=== PATIENT | male | born 1980 | race Caucasian/White ===

== ENCOUNTER 2016-09-27 19:44 | Observation (INO) | payer OTHER ==
--- NOTE | ~2016-09-27 | HP ---
History And Physical [address] [place]. [address] NAME: MAHSA CASE : [birth year] STATUS : ADM Yin PAT#: [id number] AGE: 36 ADM/REG DATE : 09/27/16 MR#: [id number] REPORT SERV DATE: 09/28/16 DICTATED BY: BRANDON [place] DATE: 09/27/16 REPORT STATUS : Draft TRANSCRIBED BY: MODL DATE: 09/27/16 DATE OF ADMISSION: 09/27/2016 CHIEF COMPLAINT: A 36-year-old male, presenting with bloody vomit. HISTORY OF PRESENT ILLNESS: The patient's history was obtained through careful interview with the patient, coupled with review of [facility] medical records. For about two weeks, the patient has had a new sinus infection. He has been using over-the- counter medications to relieve it and has been gradually improving. With this context in mind, the patient on 09/25/2016 began to develop nausea and then vomited up a large amount of blood. On 09/25/2016, he vomited blood one time yesterday. On 09/26/2016, he vomited up blood two times and on the day of admission, 09/27/2016, he vomited up blood three times. It always dark red with clots and never comes up black. No bright red blood per rectum. No melena. He does describe either right upper quadrant abdominal pain versus right lower lung chest discomfort at the peripheral aspect of his body, throbbing quality, exacerbated by activity, 8/10 severity. No nonsteroidal anti-inflammatory drug use. No lightheadedness. No diarrhea. No shortness of breath. No other abdominal pain. REVIEW OF SYSTEMS: Otherwise, a 14-point review of systems was obtained and was negative. PAST MEDICAL HISTORY: 1. Peptic ulcer disease in 2007. 2. Posttraumatic stress disorder with depression and anxiety. 3. Lower back pain. 4. Neuropathy. 5. Elevated cholesterol. 6. Hypertension. 7. Spina bifida occulta of L5. 8. Obstructive sleep apnea with occasional CPAP. PAST SURGICAL HISTORY: Denies any. ALLERGIES: NO KNOWN DRUG ALLERGIES. SOCIAL HISTORY: Never been a smoker, occasionally drinks mixed alcohol drinks. Lives alone, works at [employer], but also is a of the [employer], spent time in the [place], stationed at the [employer]. He lives in [place], [place]. He has no History And Physical [address] [address] NAME: MAHAS CASE : [birth year] STATUS : ADM Yin PAT#: [id number] AGE: 36 ADM/REG DATE : 09/27/16 MR#: [id number] REPORT SERV DATE: 09/28/16 DICTATED BY: BRANDON LAKE DATE: 09/27/16 REPORT STATUS : Draft TRANSCRIBED BY: PHILIP DATE: 09/27/16 children. FAMILY HISTORY: Mother and father, both healthy, cannot identify any particular patterns of familial disease. CURRENT MEDICATIONS: Include Flonase, Mucinex. PHYSICAL EXAMINATION: VITAL SIGNS: Temperature 98.2, pulse 72, blood pressure 135/92, respiratory rate is 16, and O2 saturation 98% on room air. GENERAL: A pleasant, cooperative, male, in no evidence of acute distress. HEENT: Pupils equal, round, and reactive to light. No conjunctival pallor. No scleral icterus. Nares are patent. Oropharynx is clear of obstruction. Moist mucous membranes. No intraoral lesions. NECK: Trachea midline. No thyromegaly. LYMPH: No cervical lymphadenopathy. No supraclavicular lymphadenopathy. RESPIRATORY: Clear to auscultation at bases. No wheezes, rales, or rhonchi. Normal respiratory effort. CARDIOVASCULAR: Regular rate and rhythm. No murmurs, rubs, or gallops. No extremity edema is appreciated. ABDOMEN: Soft, nontender, nondistended. Normal bowel sounds auscultated throughout. No hepatosplenomegaly. DERMATOLOGICAL: Warm and dry extremities. No pallor. No cyanosis. PSYCHIATRIC: Normal affect. Good mood. Alert and oriented x3. LABORATORY DATA: White blood cell count 11.7, hemoglobin 14, hematocrit 41, platelets 199. Sodium 141, potassium 3.7, chloride 107, bicarbonate 30, BUN 9, creatinine 1.12, glucose 90, lipase 218. Liver enzymes within normal limits. ASSESSMENT AND PLAN: Hematemesis. Place on IV proton pump inhibitor drip. Consult supervisory clerk, Dr. Bacilio Caldwell. GIOVANY/PHILIP Brandon Lake M.D. / [id number] CC: Gary Zuñiga MD
--- NOTE | ~2016-09-27 | CN ---
Consultation Report [facility] [address] [place]. [address] NAME: MAHSA SAENZ : [birth year] STATUS : ADM Yni PAT#: [id number] AGE: 36 ADM/REG DATE : 09/27/16 MR#: [id number] REPORT SERV DATE: 09/28/16 DICTATED BY: DELISA MCKEON DATE: 09/28/16 REPORT STATUS : Draft TRANSCRIBED BY: MODL DATE: 09/28/16 GI CONSULTATION DATE OF CONSULTATION: 09/28/2016 REASON FOR CONSULTATION: Evaluation and management of upper GI bleeding. HISTORY OF PRESENT ILLNESS: Mr. Saenz is a 36-year-old male patient, whom we received on GI unattached call for evaluation of upper GI bleeding. The patient states that he began to have nausea, vomiting, hematemesis on Tuesday09/24/2016. He has been suffering from an upper respiratory infection with a lot of mucus production. He states that on Tuesday he vomited bright red blood with clots one time, it happened twice on Tuesday, and then one time Tuesday, and then three times yesterday. He describes his bowel movements as normal. He does not have melena nor any bright red blood per rectum. He has right upper quadrant pain, which started after he began to vomit. He does have a history of peptic ulcer disease in 2007 stating that he had an upper endoscopy done at [place]. He denies any NSAID use. He does not take any regular routine medications. He has been taking Flonase and Mucinex for his upper respiratory complaints. He has not had any syncope, near syncope, dizziness, or lightheadedness. I have discussed with him and his mother, who is currently present at the bedside. We will plan for upper endoscopy today. Risks, benefits, alternatives, and complications were detailed for him to include, but not limited to risk of bleeding, perforation, infection, reaction to medication, as well as cardiac and pulmonary side effects. He is agreeable to proceed. PAST MEDICAL HISTORY: Positive for peptic ulcer disease in 2007, PTSD, depression, anxiety, neuropathy, elevated cholesterol, hypertension, obstructive sleep apnea, spina bifida, neuropathy. PAST SURGICAL HISTORY: He denies. ALLERGIES: HE HAS NONE. SOCIAL HISTORY: He denies tobacco. Social alcohol. No illicits. FAMILY HISTORY: Noncontributory from a gastrointestinal standpoint. HOME MEDICATIONS: Flonase and Mucinex. REVIEW OF SYSTEMS: A 10-point review of systems was obtained with pertinent positives being addressed in the history of present illness. PHYSICAL EXAMINATION: VITAL SIGNS: Temperature is 98.1, pulse 46, respirations 18, blood pressure 104/59. Consultation Report [address] [place]. [address] NAME: MAHSA SAENZ : 78 STATUS : ADM Yin PAT#: [id number] AGE: 36 ADM/REG DATE : 09/27/16 MR#: [id number] REPORT SERV DATE: 09/28/16 DICTATED BY: DELISA MCKEON N DATE: 09/28/16 REPORT STATUS : Draft TRANSCRIBED BY: PHILIP DATE: 09/28/16 NEURO: Reveals an alert, male, resting in bed with no focal deficits. GENERAL: He is cooperative. He is in no acute distress. He is awake, alert, and oriented x3. HEAD, EARS, EYES, NOSE, AND THROAT: Anicteric. Pupils equal, round, reactive to light and accommodation. Normocephalic and atraumatic. NECK: Supple. No JVD. No palpable nodes. LUNGS: Clear anteriorly with normal respiratory effort exhibited. Equal expansion. CARDIOVASCULAR SYSTEM: Regular rate and rhythm. Bradycardic. ABDOMEN: Soft with tenderness to palpation to the right upper quadrant. Active bowel sounds. No organomegaly appreciated. EXTREMITIES: No edema. Normal distal pulses. SKIN: Warm, dry, and intact. PERTINENT LABORATORY DATA: Sodium 142, potassium 3.6, BUN is 10, creatinine 1.11. White count 9.3, hemoglobin 13.1, hematocrit 38.6, platelet count is 191 with an INR of 1.2. No abdominal imaging obtained on admission. ASSESSMENT: 1. Upper GI bleed with hematemesis since 09/24/2016. Differential diagnosis is peptic ulcer disease, esophagitis, Elena-Toribio tear, arteriovenous malformations. 2. Right upper quadrant abdominal pain. 3. History of peptic ulcer disease in 2007. PLAN: 1. Continue his proton pump inhibitor drip. 2. The patient will undergo EGD today by Dr. Montes. I did discuss the risks, benefits, alternatives, and complications with the patient and his mother, who is present at the bedside. Other recommendations to follow EGD. DG/PHILIP CONSTANTINE Mena / [id number] CC: Gary Zuñiga MD
--- NOTE | ~2016-09-27 | EGD ---
EGD REPORT [facility] [address] [address] NAME: MAHSA SAENZ : 78 STATUS : ADM Yin PAT#: [id number] AGE: 36 ADM/REG DATE : 09/27/16 MR#: [id number] REPORT SERV DATE: 09/28/16 DICTATED BY: TY JOHNS DATE: 09/28/16 REPORT STATUS : Draft TRANSCRIBED BY: [facility] DATE: 09/28/16 Endoscopy Center Patient Name: Mahsa Saenz Date of : 1980 Attending MD: TY JOHNS MD Procedure Date No Time: 09/28/2016 Procedure: Upper GI endoscopy Indications: Hematemesis Medicines: Monitored Anesthesia Care Complications: No immediate complications. Estimated blood loss: Minimal. Procedure: After obtaining informed consent, the endoscope was passed under direct vision. Throughout the procedure, the patient's blood pressure, pulse, and oxygen saturations were monitored continuously. The GIF [id number] was introduced through the mouth, and advanced to the second part of duodenum. The upper GI endoscopy was accomplished without difficulty. The patient tolerated the procedure well. Findings: A small non-bleeding Elena-Toribio tear with stigmata of recent bleeding was found. A single medium-sized angioectasia with no bleeding was found in the gastric fundus. Fulguration to ablate the lesion to prevent bleeding by argon plasma at 0.8 liters/minute and 30 jones was successful. Estimated blood loss was minimal. Localized granular mucosa was found on the posterior wall of the gastric body. Biopsies were taken with a cold forceps for histology. Estimated blood loss was minimal. A single small nodule was found in the duodenal bulb. Biopsies were taken with a cold forceps for histology. Estimated blood loss was minimal. The exam was otherwise without abnormality. Impression: - Elena-Toribio tear. - A single non-bleeding angioectasia in the stomach. Treated by fulguration. - Granular gastric mucosa. Biopsied. - Nodule found in the duodenum. Biopsied. - The examination was otherwise normal. Recommendation: - Return patient to [facility] for [facility] care. - Full liquid diet today. - Await pathology results. EGD REPORT [address] [address] NAME: MAHSA SAENZ : [birth year] STATUS : ADM Yin PAT#: [id number] AGE: 36 ADM/REG DATE : 09/27/16 MR#: [id number] REPORT SERV DATE: 09/28/16 DICTATED BY: TY JOHNS DATE: 09/28/16 REPORT STATUS : Draft TRANSCRIBED BY: [employer] DATE: 09/28/16 - Use Protonix (pantoprazole) 40 mg PO BID for 4 weeks. Procedure Code(s): --- Professional --- 21435, 59, Esophagogastroduodenoscopy, flexible, transoral; with control of bleeding, any method 99058, Esophagogastroduodenoscopy, flexible, transoral; with biopsy, single or multiple Diagnosis Code(s): --- Professional --- K22.6, Gastro-esophageal laceration-hemorrhage syndrome K31.819, Angiodysplasia of stomach and duodenum without bleeding K31.9, Disease of stomach and duodenum, unspecified K92.0, Hematemesis CPT copyright 2013 [employer]. All rights reserved. The codes documented in this report are preliminary and upon employee relations director review may be revised to meet current compliance requirements. Ty Johns MD TY JOHNS MD 09/28/2016 10:29 AM This report has been signed electronically. Number of Addenda: 0 Note Initiated On: 09/28/2016 10:01 AM Scope Withdrawal Time 0 hours 0 minutes 0 seconds [address] [id number]
--- NOTE | ~2016-09-27 | DS ---
Discharge Summary [address] [place]. [address] NAME: MAHSA CASE : 78 STATUS : DIS Yin PAT#: [id number] AGE: 36 ADM/REG DATE : 09/27/16 MR#: [id number] REPORT SERV DATE: 09/29/16 DICTATED BY: MAHSA MOE DATE: 09/28/16 REPORT STATUS : Draft TRANSCRIBED BY: MODL DATE: 09/28/16 ADMISSION DATE: 09/27/2016 DISCHARGE DATE: 09/28/2016 OBSERVATION DISCHARGE OBSERVATION PERIOD: 09/27/2016 to 09/28/2016. DIAGNOSES: 1. Upper gastrointestinal bleeding. 2. Elena-Toribio tear. 3. Single nonbleeding angioectasia in the stomach, treated by fulguration. 4. Granular gastric mucosa, biopsied. 5. Nodule found in duodenum, biopsied. 6. Posttraumatic stress disorder. 7. Anxiety and depression. 8. Chronic pain. 9. Hyperlipidemia. 10.Hypertension. 11.Sleep apnea. OPERATIONS AND PROCEDURES: Upper endoscopy, 09/28/2016, Dr. Montes. PRESENT ILLNESS: This is a 36-year-old white male, who was triaged in the emergency room on 09/27/2016 at 1652 hours with a chief complaint of "throwing up blood." Admission vital signs, blood pressure 135/92, temperature 98.2, pulse 72, respirations 16, and O2 saturation 98%. After evaluation in the emergency room, he was referred to the Hospitalist Service for admission. He was seen by Dr. Harshil Mcmahon and admitted as described on admission history and physical examination. ADDITIONAL HISTORY: Per Dr. Mcmahon. PHYSICAL EXAMINATION: Per Dr. Mcmahon. ADMISSION LABORATORY: Per Dr. Mcmahon. HOSPITAL COURSE: He was admitted by Dr. Mcmahon with upper gastrointestinal bleeding. He was placed on [address]. He was placed on IV Protonix drip. GI consultation was obtained. He was seen on the morning of 09/28/2016 by Vicente Olivas. He was scheduled for endoscopy. This was performed by Dr. Montes today with findings as noted above. Dr. Montes's recommendation was full liquid diet, Protonix 40 mg twice daily for four weeks Discharge Summary [address] [place]. [address] NAME: MAHSA CASE MACIE : 78 STATUS : DIS Yin PAT#: [id number] AGE: 36 ADM/REG DATE : 09/27/16 MR#: [id number] REPORT SERV DATE: 09/29/16 DICTATED BY: MAHSA MOE DATE: 09/28/16 REPORT STATUS : Draft TRANSCRIBED BY: PHILIP DATE: 09/28/16 and outpatient followup regarding biopsy results. He was seen by the undersigned at 1507 hours on 09/28/2016. He wanted to go home. He was tolerating full liquids without nausea, vomiting, or pain. He was not dizzy. Blood pressure sitting 120/73, blood pressure standing 123/79. He was oriented and ambulatory and had no significant findings on exam. His hemoglobin had been 13.1 at 0554 hours and 13.6 at 0901 hours. At this point in his hospitalization, it was felt he had achieved a level of improvement and stability, where he could be safely discharged to home with outpatient followup with GI if needed and at the [facility] which is where he receives his care. He was asked to follow a liquid diet today and then advance his diet tomorrow as tolerated. It was felt he could return to work tomorrow unless he had recurrent GI symptoms. He was asked not to use any nonsteroidal anti-inflammatory drugs. He will continue his home Mucinex day and Mucinex p.m. as well as Flonase. He was given a prescription for Protonix to use 40 mg twice daily for the next four weeks. DD/PHILIP Mahsa Moe M.D. / [id number] CC: Mahsa Moe M.D. [facility]
[2016-09-27 17:17] LABS: BASOPHILS 0.2 %; BASOPHILS ABSOLUTE 0.02 10/3/uL (0.0-0.16); EOSINOPHILS 1.8 %; EOSINOPHILS ABSOLUTE 0.21 10/3/uL (0.0-0.53); ER CBC TAT 0 Hrs 07 Mins; HEMATOCRIT 41.4 % (40.0-51.0); HEMOGLOBIN 14.5 g/dL (13.6-17.8); IMMATURE GRANULOCYTES 0.3 %; IMMATURE GRANULOCYTES ABSOLUTE 0.03 10/3/uL (0.0-0.11); LYMPHOCYTES 13.9 %; LYMPHOCYTES ABSOLUTE 1.62 10/3/uL (0.67-4.30); MEAN CORPUSCULAR HEMOGLOB 29.9 pg (26.0-34.0); MEAN CORPUSCULAR VOLUME 85.4 fL (80-100); MEAN PLATELET VOLUME 9.1 fL (9.2-13.0); MONOCYTES 5.8 %; MONOCYTES ABSOLUTE 0.68 10/3/uL (0.21-1.20); NEUTROPHILS ABSOLUTE 9.13 10/3/uL (2.02-8.40); PLATELET COUNT 199 10/3/uL (150-400); RBC DISTRIBUTION WIDTH 13.4 % (12.0-16.0); RED CELL COUNT 4.85 10/6/uL (4.7-6.1); WHITE BLOOD CELLS 11.7 10/3/uL (4.5-10.5)
[2016-09-27 17:18] LABS: MANUAL DIFF NO %
[2016-09-27 17:30] LABS: ALKALINE PHOSPHATASE 85 U/L (45-117); BUN (BLOOD UREA NITROGEN) 9 MG/DL (6-23); CALCIUM, SERUM 9.3 MG/DL (8.5-10.4); CHLORIDE, SERUM 107 MMOL/L (96-112); CO2 (CARBON DIOXIDE) 30 MMOL/L (24-34); CREATININE 1.12 MG/DL (0.70-1.30); GFR AFRICAN AMERICAN 97 ML/MIN (>=60); GFR NON AFRICAN AMERICAN 83 ML/MIN (>=60); GLOBULIN 3.9 G/DL (2.5-4.1); GLUCOSE, SERUM 90 MG/DL (60-99); POTASSIUM, SERUM 3.7 MMOL/L (3.5-5.3); SGOT(AST) 13 U/L (5-40); SGPT(ALT) 19 U/L (5-65); SODIUM, SERUM 141 MMOL/L (135-148); TOTAL PROTEIN 7.9 G/DL (6.0-8.5)
[2016-09-27] MEDS ORDERED: FLONASE NAS (19:46)
[2016-09-27] MEDS ORDERED: [UNRECOGNIZED DRUG - OTHER] PO (19:49)
[2016-09-27] MEDS ORDERED: [UNRECOGNIZED DRUG - OTHER] PO (19:50)
[2016-09-28 06:36] LABS: BASOPHILS 0.2 %; BASOPHILS ABSOLUTE 0.02 10/3/uL (0.0-0.16); EOSINOPHILS 2.7 %; EOSINOPHILS ABSOLUTE 0.25 10/3/uL (0.0-0.53); HEMATOCRIT 38.6 % (40.0-51.0); HEMOGLOBIN 13.1 g/dL (13.6-17.8); IMMATURE GRANULOCYTES 0.3 %; IMMATURE GRANULOCYTES ABSOLUTE 0.03 10/3/uL (0.0-0.11); LYMPHOCYTES 21.1 %; LYMPHOCYTES ABSOLUTE 1.96 10/3/uL (0.67-4.30); MEAN CORPUS HGB CONC 33.9 g/dL (32.0-36.0); MEAN CORPUSCULAR HEMOGLOB 29.2 pg (26.0-34.0); MEAN CORPUSCULAR VOLUME 86.2 fL (80-100); MEAN PLATELET VOLUME 9.3 fL (9.2-13.0); MONOCYTES 8.1 %; MONOCYTES ABSOLUTE 0.75 10/3/uL (0.21-1.20); NEUTROPHILS 67.6 %; NEUTROPHILS ABSOLUTE 6.27 10/3/uL (2.02-8.40); PLATELET COUNT 191 10/3/uL (150-400); RBC DISTRIBUTION WIDTH 13.4 % (12.0-16.0); RED CELL COUNT 4.48 10/6/uL (4.7-6.1); WHITE BLOOD CELLS 9.3 10/3/uL (4.5-10.5)
[2016-09-28 06:38] LABS: MANUAL DIFF NO %
[2016-09-28 06:46] LABS: INTERNATIONAL NORMAL RATI 1.2 UNITS (-); PARTIAL THROMBO TIME 34.7 SEC (22.5-37.2); PROTIME (NOT ORD) 14.6 SEC (12.0-14.5)
[2016-09-28 06:59] LABS: A/G RATIO 0.9 (0.7-1.9); ALBUMIN 3.2 G/DL (3.5-5.0); ALKALINE PHOSPHATASE 67 U/L (45-117); BUN (BLOOD UREA NITROGEN) 10 MG/DL (6-23); CALCIUM, SERUM 8.5 MG/DL (8.5-10.4); CHLORIDE, SERUM 109 MMOL/L (96-112); CO2 (CARBON DIOXIDE) 26 MMOL/L (24-34); CREATININE 1.11 MG/DL (0.70-1.30); GFR AFRICAN AMERICAN 98 ML/MIN (>=60); GFR NON AFRICAN AMERICAN 84 ML/MIN (>=60); GLOBULIN 3.4 G/DL (2.5-4.1); GLUCOSE, SERUM 75 MG/DL (60-99); POTASSIUM, SERUM 3.6 MMOL/L (3.5-5.3); SGOT(AST) 13 U/L (5-40); SGPT(ALT) 16 U/L (5-65); SODIUM, SERUM 142 MMOL/L (135-148); TOTAL BILIRUBIN 1.1 MG/DL (0-1.2); TOTAL PROTEIN 6.6 G/DL (6.0-8.5)
[2016-09-28 09:55] LABS: HEMATOCRIT 40.2 % (40.0-51.0); HEMOGLOBIN 13.6 g/dL (13.6-17.8)
[2016-09-28] MEDS ORDERED: PROTONIX PO (15:46)
== END 2016-09-28 16:45 | disposition home or self-care (01) ==
LOC: ER 19:44 → 6NO 20:00
PROVIDERS: Hospitalist; Internal Medicine Gastroenterology
PROC: 0DB68ZX Excision of Stomach, Via Natural or Artificial Opening Endoscopic, Diagnostic (ICD-10-PCS; 2016-09-28)
PROC: 0W3P8ZZ Control Bleeding in Gastrointestinal Tract, Via Natural or Artificial Opening Endoscopic (ICD-10-PCS; principal; 2016-09-28 10:06)
PROC: 0DB98ZX Excision of Duodenum, Via Natural or Artificial Opening Endoscopic, Diagnostic (ICD-10-PCS; 2016-09-28 10:06)
DX: K29.00 Acute gastritis without bleeding (principal); K29.80 Duodenitis without bleeding; K22.6 Gastro-esophageal laceration-hemorrhage syndrome; K31.819 Angiodysplasia of stomach and duodenum without bleeding; K31.9 Disease of stomach and duodenum, unspecified; F32.9 Major depressive disorder, single episode, unspecified; F41.9 Anxiety disorder, unspecified; G62.9 Polyneuropathy, unspecified; I10 Essential (primary) hypertension; G47.33 Obstructive sleep apnea (adult) (pediatric); E78.5 Hyperlipidemia, unspecified; G89.29 Other chronic pain; M54.5 Low back pain; F43.10 Post-traumatic stress disorder, unspecified; Z87.11 Personal history of peptic ulcer disease
CPT/HCPCS: 71020; 80053; 81001; 83690; 83735; 84443; 85014; 85018; 85025; 85610; 85730; 88305; 88342; 96374; 96376; 99284; A9270-GY; C9113; G0378